=== PATIENT | female | born 1965 | race Caucasian/White ===

== ENCOUNTER 2017-11-22 08:12 | Day surgery (SDC) | payer OTHER ==
[2017-11-22] MEDS ORDERED: MIDAZOLAM 1 MG/ML 2 ML INJ (11:14)
[2017-11-22] MEDS ORDERED: FENTAnyl 50 MCG/ML VIAL (11:17)
[2017-11-22] MEDS ORDERED: ROPIVACAINE 0.5 % 30 ML VIAL (11:29)
[2017-11-22] MEDS ORDERED: PROCHLORPERAZINE 10 MG INJ IV (11:30)
[2017-11-22] MEDS ORDERED: CEFAZOLIN 2 GM/50 ML (PMX) 50 ML IVPB (11:30)
[2017-11-22] MEDS ORDERED: FENTAnyl 50 MCG/ML VIAL IV (11:30)
[2017-11-22] MEDS ORDERED: SOD CHLORIDE 0.9% 1,000 ML IV (11:30)
[2017-11-22] MEDS ORDERED: DIPHENHYDRAMINE 50 MG INJ IV (11:30)
[2017-11-22] MEDS ORDERED: OXYCODONE/ACETAMINOPHEN (5/325) TAB PO ×2 (11:30)
[2017-11-22] MEDS ORDERED: HYDROmorphONE 1 MG/5 ML IV SYRINGE IV (11:30)
[2017-11-22] MEDS ORDERED: hydrALAzine 20 MG INJ IV (11:30)
[2017-11-22] MEDS ORDERED: LABETALOL HCL 20MG INJ IV (11:30)
[2017-11-22] MEDS ORDERED: LIDOCAINE 2% (SDV) 5 ML INJ (11:43)
[2017-11-22] MEDS ORDERED: FAMOTIDINE 20 MG INJ (11:43)
[2017-11-22] MEDS ORDERED: DEXAMETHASONE 4 MG/ML 1 ML INJ (11:43)
[2017-11-22] MEDS ORDERED: ONDANSETRON 4 MG INJ (11:43)
[2017-11-22] MEDS ORDERED: CEFAZOLIN 1 GM INJ (11:43)
[2017-11-22] MEDS ORDERED: PROPOFOL 40 ML (11:43)
[2017-11-22] MEDS ORDERED: ACETAMINOPHEN 1000MG/100ML IV 100 ML (11:58)
[2017-11-22] MEDS ORDERED: LABETALOL HCL 20MG INJ (12:13)
[2017-11-22] MEDS ORDERED: SUGAMMADEX SODIUM 200 MG/2 ML VIAL IV (12:24)
[2017-11-22] MEDS ORDERED: HYDROCODONE/APAP (5/325) TAB PO (12:30)
[2017-11-22] MEDS: HYDROmorphONE 1 MG/5 ML IV SYRINGE IV ×2 (12:49→13:41)
[2017-11-22] MEDS: ONDANSETRON 4 MG INJ IV (12:52)
[2017-11-22] MEDS: MEPERIDINE 25 MG INJ IV (12:53)
[2017-11-22] MEDS: FENTAnyl 50 MCG/ML VIAL IV ×2 (12:53→13:31)
[2017-11-22] MEDS ORDERED: ATROPINE 1 MG/10 ML SYRINGE (13:10)
[2017-11-22] MEDS: ATROPINE 1 MG/10 ML SYRINGE IV (13:28)
== END 2017-11-22 14:52 | disposition home or self-care (01) ==
LOC: SDS 08:12
DX: K80.10 Calculus of gallbladder with chronic cholecystitis without obstruction (principal); I10 Essential (primary) hypertension; E03.9 Hypothyroidism, unspecified; E66.01 Morbid (severe) obesity due to excess calories; Z68.42 Body mass index [BMI] 45.0-49.9, adult
CPT/HCPCS: 47562; 88304

== ENCOUNTER 2017-11-29 12:58 | Emergency (ER) | payer OTHER ==
[2017-11-29 14:30] LABS: ADD MAN DIFF? NO
[2017-11-29 14:34] LABS: BASOPHILS % 0.5 % (0.0-2.0); EOSINOPHILS # 0.2 10^3/ul (0.0-0.5); EOSINOPHILS % 2.4 % (0.0-7.0); HEMATOCRIT 41.2 % (37.0-47.0); HEMOGLOBIN 13.8 g/dl (12.0-16.0); LYMPHOCYTES # 1.5 10^3/ul (0.8-2.9); LYMPHOCYTES % 23.5 % (15.0-51.0); MEAN CORPUSCULAR HEMOGLOBIN 30.9 pg (29.0-33.0); MEAN CORPUSCULAR HGB CONC 33.5 g/dl (32.0-37.0); MEAN CORPUSCULAR VOLUME 92.4 fl (82.0-101.0); MEAN PLATELET VOLUME 10.2 fl (7.4-10.4); MONOCYTE # 0.4 10^3/ul (0.3-0.9); MONOCYTES % 6.1 % (0.0-11.0); NEUTROPHIL # 4.3 10^3/ul (1.6-7.5); NEUTROPHILS % 67.3 % (39.0-77.0); PLATELET COUNT 248 10^3/UL (140-415); RED BLOOD COUNT 4.46 10^6/ul (4.20-5.40); RED CELL DISTRIBUTION WIDTH 12.8 % (11.5-14.5)
[2017-11-29 14:34] LABS: WHITE BLOOD COUNT 6.4 10^3/ul (4.8-10.8)
[2017-11-29 14:39] LABS: ADD UMIC YES; UR ASCORBIC ACID NEGATIVE (NEGATIVE); UR BACTERIA FEW /HPF (NONE SEEN); UR BILIRUBIN (Dip) NEGATIVE (NEGATIVE); UR BLOOD (Dip) NEGATIVE (NEGATIVE); UR CLARITY SLIGHTLY CLOUDY (CLEAR); UR COLOR AMBER (YELLOW); UR GLUCOSE (Dip) NEGATIVE (NEGATIVE); UR KETONES (Dip) TRACE mg/dL (NEGATIVE); UR LEUKOCYTE ESTERASE (Dip) NEGATIVE Leu/ul (NEGATIVE); UR MUCUS FEW /HPF (NONE SEEN); UR NITRITE (Dip) NEGATIVE (NEGATIVE); UR RBC 2 /HPF (0-5); UR SPECIFIC GRAVITY (Dip) 1.027 (1.003-1.030); UR SQUAMOUS EPITHELIAL CELL FEW /HPF (FEW); UR TOTAL PROTEIN (Dip) 1+ mg/dl (NEGATIVE); UR UROBILINOGEN (Dip) 2+ mg/dL (NEGATIVE); UR WBC 1 /HPF (0-5)
[2017-11-29 14:55] LABS: ALANINE AMINOTRANSFERASE 67 IU/L (13-69); ALBUMIN 4.2 g/dl (3.3-4.9); ALKALINE PHOSPHATASE 82 IU/L (42-121); ANION GAP 15 (8-16); ASPARTATE AMINO TRANSFERASE 59 IU/L (15-46); BILIRUBIN,INDIRECT 0.4 mg/dl (0-1.1); BILIRUBIN,TOTAL 0.4 mg/dl (0.2-1.3); BLOOD UREA NITROGEN 12 mg/dl (7-20); CALCIUM 9.3 mg/dl (8.4-10.2); CARBON DIOXIDE 26 mmol/L (21-31); CHLORIDE 107 mmol/L (97-110); CREATININE 0.61 mg/dl (0.44-1.00); GLUCOSE 100 mg/dl (70-220); LIPASE 37 U/L (23-300); POTASSIUM 4.7 mmol/L (3.5-5.1); SODIUM 143 mmol/L (135-144); TOTAL PROTEIN 7.2 g/dl (6.1-8.1)
[2017-11-29] MEDS: SOD CHLORIDE 0.9% 100 ML (15:33)
[2017-11-29] MEDS: IOHEXOL 300MG/ML 150 ML BTL (15:33)
[2017-11-29] MEDS: ACETAMINOPHEN 500 MG TAB PO (15:50)
== END 2017-11-29 17:43 | disposition home or self-care (01) ==
LOC: FTE 12:58
DX: R50.82 Postprocedural fever (principal); K57.92 Diverticulitis of intestine, part unspecified, without perforation or abscess without bleeding; J45.909 Unspecified asthma, uncomplicated; I10 Essential (primary) hypertension; E03.9 Hypothyroidism, unspecified
CPT/HCPCS: 36415; 71045; 74177; 80053; 81001; 81025; 83690; 85025; 99285-25